=== PATIENT | male | born 1975 | race Two or more races ===

== ENCOUNTER 2018-11-17 16:29 | Emergency (ER) | payer OTHER ==
[~2018-11-17] VITALS: Ht 175.3 cm; Wt 92.5 kg
[2018-11-17 16:33] VITALS: BP 115/78
[2018-11-17] MEDS ORDERED: NKM (16:36)
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
[2018-11-17] MEDS ORDERED: IBUPROFEN600 MG ORAL (17:39)
[2018-11-17 17:49] VITALS: BP 115/78
== END 2018-11-17 17:49 | disposition home or self-care (01) ==
LOC: EMR 16:48
DX: S83.92XA Sprain of unspecified site of left knee, initial encounter (principal); S83.91XA Sprain of unspecified site of right knee, initial encounter; V43.92XA Unspecified car occupant injured in collision with other type car in traffic accident, initial encounter; Y92.410 Unspecified street and highway as the place of occurrence of the external cause; M25.512 Pain in left shoulder
CPT/HCPCS: 99282